=== PATIENT | female | born 1985 ===

== ENCOUNTER → 2019-12-10 | Outpatient (CLI) | payer OTHER ==
--- NOTE | 2019-12-10 17:56 | RADIOLOGY REPORT (SQ) ---
EXAM DESCRIPTION: U/S NON-OB PELVIS TV W/O DOP COMPLETED DATE/TIME: 12/10/2019 4:31 pm REASON FOR STUDY: T83.32XA DISPLACEMENT OF INTRAUTERINE CONTRACEPTIVE DEVICE, INIT T83.32XA DISPLAC EMENT OF INTRAUTERINE CONTRACEPTIVE DEVICE, COMPARISON: None. TECHNIQUE: Dynamic and static grayscale images acquired of the pelvis via transvaginal approach and recorded on PACS. Additional selected color Doppler and spectral images recorded. LIMITATIONS: None. FINDINGS: UTERUS: Contour normal. No mass. ENDOMETRIAL STRIPE: No focal or generalized thickening. No masses. CERVIX: No nabothian cysts. RIGHT OVARY AND DOPPLER: Normal size. No worrisome masses. Normal arterial vascular flow without evid ence for torsion. LEFT OVARY AND DOPPLER: Normal size. No worrisome masses. Normal arterial vascular flow without evide nce for torsion. FREE FLUID: None noted. OTHER: No other significant finding. MEASUREMENTS: UTERUS: 8.3 x 4.8 x 4.2 cm ENDOMETRIAL STRIPE: 7 mm RIGHT OVARY: 2.7 x 2.7 x 1.9 cm LEFT OVARY: 2.6 x 1.9 x 1.4 cm IMPRESSION: NORMAL TRANSVAGINAL PELVIC ULTRASOUND. No IUD identified. TECHNICAL DOCUMENTATION: JOB ID: [id number] [place]-72 2010 [employer]- All Rights Reserved Rev-02/03 Reading location - IP/workstation name: [email or web address]
== END ==
LOC: RAD 15:55
PROVIDERS: ATTEND Nurse Practitioner Family
DX: T83.32XA Displacement of intrauterine contraceptive device, initial encounter (principal)
CPT/HCPCS: 76830